=== PATIENT | male | born 2000 | race Caucasian/White ===

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

== ENCOUNTER 2024-04-10 16:47 | Inpatient (IN) | payer BC, SELFPAY ==
[~2024-04-10] VITALS: Ht 180.3 cm; Wt 129.4 kg
[~2024-04-10 16:47] MED LIST changes: +METH20CA PO; -METH20CA4 PO
[2024-04-10 17:47] LABS: HEMATOCRIT 41.8 % (42.0-52.0); HEMOGLOBIN 14.4 g/dl (13.5-17.5); MEAN CORPUSCULAR HEMOGLOBIN 30.1 pg (27.0-33.0); MEAN CORPUSCULAR HGB CONC 34.4 g/dl (32.0-36.5); MEAN CORPUSCULAR VOLUME 87.4 fl (80.0-96.0); PLATELET COUNT, AUTOMATED 246 10^3/uL (150-450); RED BLOOD COUNT 4.78 10^6/uL (4.30-6.10); WHITE BLOOD COUNT 9.8 10^3/uL (4.0-10.0)
[2024-04-10] MEDS ORDERED: HOME MED LIST COMPLETE! XX SCH (18:05)
[2024-04-10 18:20] LABS: ETHYL ALCOHOL (ETHANOL) 0.005 % (0.000-0.010)
[2024-04-10 18:22] LABS: ALBUMIN 3.7 G/DL (3.2-5.2); ALKALINE PHOSPHATASE 70 U/L (40-129); ALT/SGPT 96 U/L (7.0-40); AST/SGOT 46 U/L (<34); BILIRUBIN,DIRECT 0.2 MG/DL (<0.4); BILIRUBIN,TOTAL 0.7 MG/DL (0.3-1.2); BLOOD UREA NITROGEN 15 MG/DL (9-23); CALCIUM LEVEL 9.1 MG/DL (8.5-10.1); CARBON DIOXIDE LEVEL 25 MMOL/L (20-31); CHLORIDE LEVEL 106 MMOL/L (98-107); CREATININE FOR GFR 0.81 MG/DL (0.70-1.30); GLOMERULAR FILTRATION RATE > 60.0 (>60); GLUCOSE, FASTING 92 MG/DL (60-100); POTASSIUM SERUM 3.4 MMOL/L (3.5-5.1); SALICYLATE LEVEL < 3.0 MG/DL (<30); SODIUM LEVEL 142 MMOL/L (136-145); THYROID STIMULATING HORMONE 3.209 uIU/ML (0.55-4.78); TOTAL PROTEIN 7.3 G/DL (5.7-8.2)
[2024-04-10 21:12] LABS: AMPHETAMINES LEVEL URINE NEGATIVE (NEGATIVE); BARBITURATES URINE NEGATIVE (NEGATIVE); BENZODIAZEPINES URINE NEGATIVE (NEGATIVE); CANNABINOIDS URINE NEGATIVE (NEGATIVE); COCAINE METABOLITE URINE NEGATIVE (NEGATIVE); METHADONE URINE NEGATIVE (NEGATIVE); OPIATES URINE NEGATIVE (NEGATIVE); PHENCYCLIDINE URINE NEGATIVE (NEGATIVE)
[2024-04-10] MEDS ORDERED: IBUPROFEN 400MG TAB PO PRN (22:00)
[2024-04-10] MEDS ORDERED: OLANZapine ORAL DISINTEGRATING TAB 5MG PO PRN (22:00)
[2024-04-10] MEDS ORDERED: ACETAMINOPHEN 325 MG TAB PO PRN (22:00)
[2024-04-10] MEDS ORDERED: traZODone 50 MG TAB PO PRN (22:00)
[2024-04-10] MEDS ORDERED: MAALOX 30 ML SUSP *UDC PO PRN (22:00)
[2024-04-10] MEDS ORDERED: diphenhydrAMINE 25MG CAP PO PRN (22:00)
[2024-04-10] MEDS ORDERED: MOM 30ML SUSPENSION UDC PO PRN (22:00)
[2024-04-10 23:32] VITALS: BP 131/77; TEMP 98.6; O2SAT 97
[2024-04-11 06:35] VITALS: BP 157/90; TEMP 97.1; O2SAT 98
[2024-04-11 17:27] VITALS: BP 119/63; TEMP 97.1; O2SAT 99
[2024-04-11 20:07] LABS: HEPATITIS B SURFACE ANTIGEN NEGATIVE (NEGATIVE)
[2024-04-11 20:29] LABS: HEPATITIS B CORE ANTIBODY IGM NEGATIVE (NEGATIVE); HEPATITIS C VIRUS ABY INDEX 0.12 INDEX (<0.8)
[2024-04-12 06:35] VITALS: BP 134/81; TEMP 97.2; O2SAT 98
[2024-04-12] MEDS: FLUZONE VACCINE TRIVALENT PF(2024-25) 0.5ML SYRINGE IM.IMMUN ONE (09:50)
[2024-04-12 16:52] VITALS: BP 145/74; TEMP 97.9; O2SAT 97
[2024-04-13 06:27] VITALS: BP 134/71; TEMP 96.9; O2SAT 100
[2024-04-13 15:40] VITALS: BP 142/70; TEMP 98; O2SAT 99
[2024-04-14 06:22] VITALS: BP 140/90; TEMP 97.3; O2SAT 95
[2024-04-14 16:17] VITALS: BP 128/65; TEMP 97.4; O2SAT 97
[2024-04-15 06:54] VITALS: BP 137/88; TEMP 97.4; O2SAT 98
== END 2024-04-15 11:51 | disposition home or self-care (01) | DRG 753 ==
LOC: M ED 16:47 → M ED INP 21:58 → M PSY 23:11
PROVIDERS: ADMIT Psychiatry & Neurology Neurology; ATTEND Psychiatry & Neurology Neurology
DX: F32.89 Other specified depressive episodes (principal); F43.21 Adjustment disorder with depressed mood; K90.0 Celiac disease; R45.851 Suicidal ideations; Z63.0 Problems in relationship with spouse or partner; Z56.6 Other physical and mental strain related to work